=== PATIENT | female | born 1975 | race Caucasian/White ===

== ENCOUNTER 2017-11-23 09:06 | Inpatient (IN) | payer MEDICARE, MEDICAID ==
[2017-11-22 12:07] LABS: BASOPHILS % (AUTO) 0.4 % (0-1); EOSINOPHILS % (AUTO) 0.7 % (0-6); LYMPHOCYTES # (AUTO) 2.2 X10'3 (1.1-4.8); MEAN CORPUSCULAR HEMOGLOBIN 32.8 PG (27.0-31.0); MEAN CORPUSCULAR HGB CONC 34.3 % (33.0-36.5); MEAN CORPUSCULAR VOLUME 95.6 FL (78-98); MONOCYTES # (AUTO) 0.5 X10'3 (0-0.9); MONOCYTES % (AUTO) 9.7 % (2-12); NEUTROPHILS # (AUTO) 2.7 X10'3 (1.8-7.7); NEUTROPHILS % (AUTO) 49.2 % (42-75); PRE OP HEMATOCRIT 40.4 % (35.0-45.0); PRE OP HEMOGLOBIN 13.9 g/dL (12.0-16.0); PRE OP PLATELET COUNT 226 X10'3 (140-440); RED BLOOD COUNT 4.23 X10'6 (4.20-5.60); RED CELL DISTRIBUTION WIDTH 12.5 % (11.5-14.5)
[2017-11-22 12:23] LABS: ALBUMIN 3.9 G/DL (3.4-5.0); ALBUMIN/GLOBULIN RATIO 1.1 (1.1-1.5); ALKALINE PHOSPHATASE 80 IU/L (46-116); BLOOD UREA NITROGEN 5 MG/DL (7-18); BUN/CREATININE RATIO 6.8 (6.6-38.0); CALCIUM 8.6 MG/DL (8.5-10.1); CHLORIDE 106 MMOL/L (99-107); CREATININE 0.74 MG/DL (0.40-0.90); PRE OP ALT 31 U/L (30-65); PRE OP AST 19 U/L (10-37); PRE OP BILIRUB, TOTAL 0.3 MG/DL (0.0-1.0); PRE OP GLUCOSE 89 MG/DL (70-104); PRE OP POTASSIUM 3.7 MMOL/L (3.4-5.1); TOTAL CARBON DIOXIDE 34.2 MMOL/L (24-32); TOTAL PROTEIN 7.3 G/DL (6.4-8.2); eGFR 86 ML/MIN
[2017-11-22 12:57] LABS: PRE OP ANION GAP 3 (8-16); PRE OP SODIUM 143 MMOL/L (135-145)
[2017-11-23] VITALS (23 sets, daily range): BP systolic 15–127; BP diastolic 61–81
[~2017-11-23] VITALS: Ht 160 cm; Wt 83.0 kg
[~2017-11-23 09:06] MED LIST: CETI-102 PO; DESV50TA PO; DICL100G15 TOP; ELET40TA PO; ERYT30GE4 TOP; ESOM40CA30 PO; IBUP-1984 PO; LEVO137T24 PO; TRIA15OI2 TOP; VANCOMYCIN INJ 1000 MG in NORMAL SALINE 250ml IV.SOLN IV ONE; ZOLP10TA5 PO; [UNRECOGNIZED DRUG - CODE] PO; ceFAZolin 2gm in dextrose, iso 100 ML IV ONE; famotidine 20mg tablet PO ONE; ringers solution, lacted 1,000 ML IV SCH; tranexamic acid inj. 830 MG in normal saline 100ml IV soln 91.7 ML IV ONE
[2017-11-23] MEDS ORDERED: LIDOcaine 1% (10mg/ml) 2ml vial ONE (09:09)
[2017-11-23] MEDS ORDERED: ROPIVAcaine 0.5% (5mg/ml) 30ml vial ONE ×2 (11:08→12:05)
[2017-11-23] MEDS ORDERED: ketorolac trometh. 30mg/ml inj. ONE (11:08)
[2017-11-23] MEDS ORDERED: vancomycin 1,000mg inj ONE (11:22)
[2017-11-23] MEDS ORDERED: diphenhydrAMINE 50 mg/ml inj ONE (11:23)
[2017-11-23] MEDS ORDERED: diphenhydrAMINE 50 mg/ml inj IV ONE ×2 (11:25→11:55)
[2017-11-23] MEDS ORDERED: diphenhydrAMINE 50 mg/ml inj IM ONE (11:45)
[2017-11-23] MEDS ORDERED: BUPIVAcaine 0.5% inj/PF 30 ML ONE (12:05)
[2017-11-23] MEDS ORDERED: LIDOcaine 1% 30ml vial 30 ML ONE (12:06)
[2017-11-23] MEDS ORDERED: MIDAZolam 1mg/ml 10ml vial ONE (12:10)
[2017-11-23] MEDS ORDERED: tranexamic acid inj. 830 MG in normal saline 100ml IV soln 91.7 ML IV ONE ×4 (12:10)
[2017-11-23] MEDS ORDERED: MORPHINE SULFATE/PF 0.5 MG/ML 10ML AMPUL ONE (12:21)
[2017-11-23] MEDS ORDERED: propofol inj 20 ML IV ONE ×3 (12:49)
[2017-11-23] MEDS ORDERED: ringers solution, lacted 1,000 ML IV ONE (13:23)
[2017-11-23] MEDS ORDERED: meperidine/PF 25mg/ml syringe IV PRN ×2 (13:25)
[2017-11-23] MEDS ORDERED: labetalol 20mg/4ml (5mg/ml) syringe IV PRN (13:25)
[2017-11-23] MEDS ORDERED: meperidine/PF 25mg/ml syringe IV ONE (13:25)
[2017-11-23] MEDS ORDERED: ondansetron/PF 4mg/2ml inj IV PRN ×2 (13:25→14:40)
[2017-11-23] MEDS ORDERED: hydrALAZINE 20mg/ml inj. IV PRN (13:25)
[2017-11-23] MEDS ORDERED: MEPERIDINE PO PRN (14:40)
[2017-11-23] MEDS ORDERED: zolpidem 5mg tablet PO PRN (14:40)
[2017-11-23] MEDS ORDERED: bisacodyl 10mg suppository rectal RC PRN (14:40)
[2017-11-23] MEDS ORDERED: cetirizine 10mg tablet PO PRN (14:40)
[2017-11-23] MEDS ORDERED: MEPERIDINE IV SCH (14:40)
[2017-11-23] MEDS ORDERED: ERYTHROMYCIN BASE TOP PRN (14:40)
[2017-11-23] MEDS ORDERED: DICLOFENAC SODIUM TOP PRN (14:40)
[2017-11-23] MEDS ORDERED: meperidine/PF 100mg/ml syringe IV PRN (14:40)
[2017-11-23] MEDS ORDERED: acetaminophen 325mg tablet PO PRN (14:40)
[2017-11-23] MEDS ORDERED: ETHANOL TOP PRN (14:40)
[2017-11-23] MEDS ORDERED: diphenhydrAMINE 25mg capsule PO PRN (14:40)
[2017-11-23] MEDS ORDERED: meperidine/PF 50mg/ml syringe IV PRN (14:40)
[2017-11-23] MEDS ORDERED: CADD PCA waste documentation MC SCH (15:20)
[2017-11-23] MEDS: MEPERIDINE IV SCH ×5 (16:34→22:58)
[2017-11-23] MEDS ORDERED: tranexamic acid inj. 830 MG in normal saline 100ml IV soln 100 ML IV ONE (17:40)
[2017-11-23] MEDS: venlafaxine 25mg tablet PO SCH ×2 (19:55→20:00)
[2017-11-23] MEDS: cefazolin 1gm/NS 100mL 100 ML IV SCH (19:55)
[2017-11-23] MEDS: potassium cl 20mEq in 1/2 NS 1,000 ML IV SCH ×2 (19:55→22:39)
[2017-11-23] MEDS ORDERED: acetaminophen 325mg tablet PO SCH (20:00)
[2017-11-23] MEDS ORDERED: vancomycin/NS 1 GM ADD-VANTAGE 250 ML IV SCH (20:00)
[2017-11-23] MEDS: sennosides 8.6mg tablet PO SCH (21:00)
[2017-11-23] MEDS: diphenhydrAMINE 25mg capsule PO PRN (21:02)
[2017-11-24] MEDS: cefazolin 1gm/NS 100mL 100 ML IV SCH (00:28)
[2017-11-24] MEDS: MEPERIDINE IV SCH ×7 (01:00→13:00)
[2017-11-24 02:00] VITALS: BP 90/62
[2017-11-24] MEDS: diphenhydrAMINE 25mg capsule PO PRN ×2 (05:01→11:28)
[2017-11-24 06:00] VITALS: BP 121/65
[2017-11-24] MEDS: potassium cl 20mEq in 1/2 NS 1,000 ML IV SCH ×3 (06:39→22:39)
[2017-11-24 07:49] LABS: BASOPHILS % (AUTO) 0.2 % (0-1); EOSINOPHILS # (AUTO) 0.1 X10'3 (0-0.9); EOSINOPHILS % (AUTO) 1.7 % (0-6); HEMATOCRIT 35.3 % (35.0-45.0); HEMOGLOBIN 11.8 g/dl (12.0-16.0); LYMPHOCYTES # (AUTO) 1.1 X10'3 (1.1-4.8); LYMPHOCYTES % (AUTO) 15.5 % (21-51); MEAN CORPUSCULAR HEMOGLOBIN 32.4 PG (27.0-31.0); MEAN CORPUSCULAR HGB CONC 33.5 % (33.0-36.5); MEAN CORPUSCULAR VOLUME 96.8 FL (78-98); MEAN PLATELET VOLUME 8.5 FL (7.4-10.4); MONOCYTES # (AUTO) 0.4 X10'3 (0-0.9); MONOCYTES % (AUTO) 5.3 % (2-12); NEUTROPHILS # (AUTO) 5.4 X10'3 (1.8-7.7); NEUTROPHILS % (AUTO) 77.3 % (42-75); PLATELET COUNT 211 X10'3 (140-440); RED BLOOD COUNT 3.65 X10'6 (4.20-5.60); RED CELL DISTRIBUTION WIDTH 12.8 % (11.5-14.5); WHITE BLOOD COUNT 7.1 X10'3 (4.5-11.0)
[2017-11-24 08:06] LABS: ANION GAP 5 (8-16); CHLORIDE 104 MMOL/L (99-107); SODIUM 140 MMOL/L (135-145); TOTAL CARBON DIOXIDE 30.9 MMOL/L (24-32)
[2017-11-24] MEDS: aspirin 325mg tablet PO SCH (08:22)
[2017-11-24] MEDS: pantoprazole 40mg Tablet.DR PO SCH (08:22)
[2017-11-24] MEDS: levoTHYROXINE 25mcg tablet PO SCH (08:22)
[2017-11-24] MEDS: venlafaxine 25mg tablet PO SCH ×2 (08:22→21:08)
[2017-11-24] MEDS: levoTHYROXINE 112mcg tablet PO SCH (08:22)
[2017-11-24] MEDS ORDERED: ELETRIPTAN PO PRN (10:05)
[2017-11-24 10:30] VITALS: BP 102/56
[2017-11-24] MEDS: VOLTAREN TP PRN ×2 (11:34→17:51)
[2017-11-24] MEDS: MEPERIDINE PO PRN ×3 (14:20→23:06)
[2017-11-24] MEDS: magnesium hydroxide 30ml (MOM) UD suspension PO PRN (14:22)
[2017-11-24 18:04] VITALS: BP 124/79
[2017-11-24] MEDS: sennosides 8.6mg tablet PO SCH (21:08)
[2017-11-24] MEDS: ibuprofen 200mg tablet PO PRN (21:08)
[2017-11-24 22:00] VITALS: BP 126/76
[2017-11-25] MEDS: MEPERIDINE PO PRN ×3 (03:48→12:48)
[2017-11-25] MEDS: diphenhydrAMINE 25mg capsule PO PRN (03:49)
[2017-11-25 05:00] VITALS: BP 99/59
[2017-11-25] MEDS: magnesium hydroxide 30ml (MOM) UD suspension PO PRN (05:30)
[2017-11-25] MEDS: ibuprofen 200mg tablet PO PRN ×2 (05:30→15:50)
[2017-11-25 06:38] LABS: BASOPHILS % (AUTO) 0.3 % (0-1); EOSINOPHILS # (AUTO) 0.2 X10'3 (0-0.9); EOSINOPHILS % (AUTO) 2.2 % (0-6); HEMATOCRIT 30.4 % (35.0-45.0); HEMOGLOBIN 10.3 g/dl (12.0-16.0); LYMPHOCYTES # (AUTO) 1.6 X10'3 (1.1-4.8); LYMPHOCYTES % (AUTO) 22.6 % (21-51); MEAN CORPUSCULAR HEMOGLOBIN 32.4 PG (27.0-31.0); MEAN CORPUSCULAR VOLUME 95.4 FL (78-98); MEAN PLATELET VOLUME 8.2 FL (7.4-10.4); MONOCYTES # (AUTO) 0.7 X10'3 (0-0.9); MONOCYTES % (AUTO) 10.3 % (2-12); NEUTROPHILS # (AUTO) 4.6 X10'3 (1.8-7.7); NEUTROPHILS % (AUTO) 64.6 % (42-75); PLATELET COUNT 208 X10'3 (140-440); RED BLOOD COUNT 3.18 X10'6 (4.20-5.60); RED CELL DISTRIBUTION WIDTH 12.4 % (11.5-14.5); WHITE BLOOD COUNT 7.1 X10'3 (4.5-11.0)
[2017-11-25] MEDS: potassium cl 20mEq in 1/2 NS 1,000 ML IV SCH (06:39)
[2017-11-25] MEDS: levoTHYROXINE 25mcg tablet PO SCH (07:11)
[2017-11-25] MEDS: levoTHYROXINE 112mcg tablet PO SCH (07:11)
[2017-11-25] MEDS: venlafaxine 25mg tablet PO SCH (07:13)
[2017-11-25] MEDS: pantoprazole 40mg Tablet.DR PO SCH (07:13)
[2017-11-25] MEDS: VOLTAREN TP PRN (07:13)
[2017-11-25] MEDS: aspirin 325mg tablet PO SCH (07:52)
[2017-11-25 10:00] VITALS: BP 91/53
[2017-11-25] MEDS ORDERED: ASPI-1 PO (10:43)
[2017-11-25] MEDS ORDERED: acetaminophen 325mg tablet PO PRN (14:40)
== END 2017-11-25 16:00 | disposition home or self-care (01) | DRG 470 ==
LOC: PAS IN 09:06 → EDSTATUS 12:00 → ORTHO 4S 16:50
PROVIDERS: ADMIT Orthopaedic Surgery; ATTEND Orthopaedic Surgery
PROC: 8E0YXBZ Computer Assisted Procedure of Lower Extremity (ICD-10-PCS; 2017-11-23)
PROC: 8E0YXCZ Robotic Assisted Procedure of Lower Extremity (ICD-10-PCS; 2017-11-23)
PROC: 0SRC0J9 Replacement of Right Knee Joint with Synthetic Substitute, Cemented, Open Approach (ICD-10-PCS; principal; 2017-11-23 12:10)
DX: M17.31 Unilateral post-traumatic osteoarthritis, right knee (principal); D62 Acute posthemorrhagic anemia; E03.9 Hypothyroidism, unspecified; F41.8 Other specified anxiety disorders; G43.909 Migraine, unspecified, not intractable, without status migrainosus; G89.29 Other chronic pain; K21.9 Gastro-esophageal reflux disease without esophagitis; Z96.652 Presence of left artificial knee joint; Z88.5 Allergy status to narcotic agent; Z88.8 Allergy status to other drugs, medicaments and biological substances; Z79.899 Other long term (current) drug therapy; Z82.49 Family history of ischemic heart disease and other diseases of the circulatory system
CPT/HCPCS: 36415; 80051; 80053; 85025; 87070; 97116; 97161; 97530; A6255; A6449; A6455; A7000; C1713; C1758; C1776; J0690; J1200; J1885; J2175; J2250; J2274; J2704; J2795; J3370; J3490; J7120; Q0163

== ENCOUNTER 2018-01-01 01:13 | Emergency (ER) | payer MEDICARE, MEDICAID ==
[~2018-01-01] VITALS: Ht 160 cm; Wt 81.1 kg
[~2018-01-01 01:13] MED LIST changes: +ASPI-1 PO; -VANCOMYCIN INJ 1000 MG in NORMAL SALINE 250ml IV.SOLN IV ONE; -ceFAZolin 2gm in dextrose, iso 100 ML IV ONE; -famotidine 20mg tablet PO ONE; -ringers solution, lacted 1,000 ML IV SCH; -tranexamic acid inj. 830 MG in normal saline 100ml IV soln 91.7 ML IV ONE
[2018-01-01] MEDS ORDERED: ketorolac trometh inj. 60 MG/2 ML VIAL IM ONE (02:00)
[2018-01-01 02:17] LABS: BASOPHILS % (AUTO) 0.1 % (0-1); EOSINOPHILS # (AUTO) 0.1 X10'3 (0-0.9); EOSINOPHILS % (AUTO) 1.5 % (0-6); HEMATOCRIT 37.3 % (35.0-45.0); HEMOGLOBIN 13.2 g/dl (12.0-16.0); LYMPHOCYTES # (AUTO) 2.5 X10'3 (1.1-4.8); LYMPHOCYTES % (AUTO) 34.2 % (21-51); MEAN CORPUSCULAR HEMOGLOBIN 34.2 PG (27.0-31.0); MEAN CORPUSCULAR HGB CONC 35.4 % (33.0-36.5); MEAN CORPUSCULAR VOLUME 96.6 FL (78-98); MEAN PLATELET VOLUME 7.4 FL (7.4-10.4); MONOCYTES # (AUTO) 0.6 X10'3 (0-0.9); MONOCYTES % (AUTO) 8.7 % (2-12); NEUTROPHILS # (AUTO) 4.1 X10'3 (1.8-7.7); NEUTROPHILS % (AUTO) 55.5 % (42-75); PLATELET COUNT 347 X10'3 (140-440); RED BLOOD COUNT 3.86 X10'6 (4.20-5.60); RED CELL DISTRIBUTION WIDTH 12.8 % (11.5-14.5); WHITE BLOOD COUNT 7.4 X10'3 (4.5-11.0)
[2018-01-01 02:35] LABS: INR 0.9 INR; PARTIAL THROMBOPLASTIN TIME 29 SECONDS (22-32); PROTHROMBIN TIME 9.8 SECONDS (9.0-12.0)
[2018-01-01 02:40] LABS: ALANINE AMINOTRANSFERASE 34 U/L (12-78); ALBUMIN 4.1 G/DL (3.4-5.0); ALBUMIN/GLOBULIN RATIO 1.1 (1.1-1.5); ALKALINE PHOSPHATASE 91 IU/L (46-116); ANION GAP 9 (8-16); ASPARTATE AMINO TRANSFERASE 23 U/L (10-37); BILIRUBIN,TOTAL 0.2 MG/DL (0.1-1.0); BLOOD UREA NITROGEN 9 MG/DL (7-18); BUN/CREATININE RATIO 11.4 (6.6-38.0); CALCIUM 8.7 MG/DL (8.5-10.1); CHLORIDE 105 MMOL/L (99-107); CREATININE 0.79 MG/DL (0.40-0.90); GLUCOSE 94 MG/DL (70-104); MAGNESIUM 2.3 MG/DL (1.5-2.4); POTASSIUM 3.4 MMOL/L (3.5-5.1); SODIUM 146 MMOL/L (135-145); TOTAL CARBON DIOXIDE 32.1 MMOL/L (24-32); TOTAL PROTEIN 7.8 G/DL (6.4-8.2); eGFR 79 ML/MIN
[2018-01-01] MEDS ORDERED: BACDS PO (03:20)
[2018-01-01] MEDS ORDERED: CEPH500C5 PO (03:20)
[2018-01-01 03:34] VITALS: BP 114/76
== END 2018-01-01 03:38 | disposition home or self-care (01) ==
LOC: ER 01:14
DX: L03.115 Cellulitis of right lower limb (principal); K21.9 Gastro-esophageal reflux disease without esophagitis; F32.9 Major depressive disorder, single episode, unspecified; Z90.710 Acquired absence of both cervix and uterus; Z79.82 Long term (current) use of aspirin; Z88.5 Allergy status to narcotic agent; Z88.8 Allergy status to other drugs, medicaments and biological substances; Z79.899 Other long term (current) drug therapy
CPT/HCPCS: 36415; 80053; 83735; 84145; 85025; 85610; 85730; 96372; 99284; J1885